=== PATIENT | female | born 1955 | race Caucasian/White ===

== ENCOUNTER 2025-05-24 07:01 | Emergency (ER) | payer OTHER, SELFPAY ==
[2025-05-24 07:04] VITALS: BP 117/71
--- NOTE | 2025-05-24 07:45 | ED.GENMED ---
History of Present Illness
<Raheem Arias MD, Resident - Last Filed: 05/24/25 16:19>
General
Chief Complaint: Back Pain
Time Seen by Provider: 05/24/25 07:14
History of Present Illness
History of Present Illness:
Patient is a 69-year-old female who presents to the emergency department with complaints of low back pain for the past 2 weeks that have begun to radiate down her right leg and is associated with weakness. Patient was in her normal state of health
2 weeks ago when she started to have low back pain around the area of the L4-L5 region. The back pain continued to get worse which prompted her to contact her primary care provider who gave her steroids and Flexeril. Unfortunately, the pain
continued and she was unable to get comfortable which led her primary care provider to give her tramadol which was also unsuccessful in managing her pain. The pain worked its way down to her right foot and the patient struggles to sleep. She
describes the pain as sharp at a 6 out of 10 to 8 out of 10 pain at worst. Now she has numbness in the toes of her right foot. She is unsteady and her helped her walk into the emergency department. She denies any trauma associated with
the back pain she denies any fever or history of fall. She does not use any IV drugs. She denies any change in her bowel or bladder habits.
Past History
<Raheem Arias MD, Resident - Last Filed: 05/24/25 16:19>
Past History
ED Past Medical History: GERD
ED Past Surgical History: Other (hysterectomy)
Social History
Personal:
Living: with family
Review of Systems
<Raheem Arias MD, Resident - Last Filed: 05/24/25 16:19>
Review of Systems
Constitutional: Reports no symptoms
EENT: Reports no symptoms
Respiratory: Reports no symptoms
Cardiac: Reports no symptoms
ABD/GI: Reports no symptoms
: Reports no symptoms
Musculoskeletal: Reports back pain
Skin: Reports no symptoms
Neurological: Reports weakness (Right lower limb weakness and difficulty with ambulation)
Endocrine: Reports no symptoms
Hematologic/Lymphatic: Reports no symptoms
Psychiatric: Reports no symptoms
Phy Exam
<Raheem Arias MD, Resident - Last Filed: 05/24/25 16:19>
General Physical Exam
General Presentation: well appearing and moderate distress
General age: appears stated age
General Skin: warm
General Habitus: normal
General Mental: alert
General Hydration: appears well hydrated
Cardiovascular Exam
Cardiovascular Exam: regular rate/rhythm, no edema, no gallop, no JVD and no murmur
Neurological Exam
Neurological Exam: alert, oriented x3 and motor weakness (Right lower limb weakness, decreased L4 reflex, weakness in dorisflexion)
Musculoskeletal Exam
Musculoskeletal Exam: full ROM
Skin Exam
Skin Exam: normal color, warm/dry, no rash and no petechia
Psychiatric Exam
Psychiatric Exam: normal mood/affect
Course
<Raheem Arias MD, Resident - Last Filed: 05/24/25 16:19>
Orders/Labs/Results
Orders:
Orders
05/24/25 07:49
MR Lumbar Without Contrast Routine
Comment:
Reason For Exam: Decreased L4 reflex and Wkness in Dorsiflexion/L5
Recent pill cam endoscopy?: No
05/24/25 09:41
Ketorolac [Toradol] 15 mg IM NOW ONE
05/24/25 10:40
Oxycodone/Acetaminophen [Percocet 5/325] 1 tablet PO NOW ONE
Vital Signs
Initial and Last Documented VS:
Initial Vital Signs
Temp Pulse Resp Pulse Ox
98.2 F 87 18 100
05/24/25 07:02 05/24/25 07:02 05/24/25 07:02 05/24/25 07:02
Last Documented Vital Signs
Temp Pulse Resp BP Pulse Ox
98.2 F 59 16 149/78 98
05/24/25 07:02 05/24/25 15:57 05/24/25 16:00 05/24/25 15:57 05/24/25 15:57
<Jaspreet Mcnair, DO - Last Filed: 05/24/25 17:45>
Orders/Labs/Results
Orders:
Orders
05/24/25 07:49
MR Lumbar Without Contrast Routine
Comment:
Reason For Exam: Decreased L4 reflex and Wkness in Dorsiflexion/L5
Recent pill cam endoscopy?: No
05/24/25 09:41
Ketorolac [Toradol] 15 mg IM NOW ONE
05/24/25 10:40
Oxycodone/Acetaminophen [Percocet 5/325] 1 tablet PO NOW ONE
Vital Signs
Initial and Last Documented VS:
Initial Vital Signs
Temp Pulse Resp Pulse Ox
98.2 F 87 18 100
05/24/25 07:02 05/24/25 07:02 05/24/25 07:02 05/24/25 07:02
Last Documented Vital Signs
Temp Pulse Resp BP Pulse Ox
98.2 F 59 16 149/78 98
05/24/25 07:02 05/24/25 15:57 05/24/25 16:00 05/24/25 15:57 05/24/25 15:57
<Jaspreet Mcnair DO - Last Filed: 05/24/25 17:45>
MDM/Problems Addressed
Differential Diagnosis Includes:
L5 disc herniation, sciatica. Cauda equina
Chronic conditions affecting care: Previous abdomnial surgery (hysterectomy)
<Raheem Arias MD, Resident - Last Filed: 05/24/25 16:19>
*Pulse Oximetry
SaO2: 100
Patient hypoxic: no
*Critical Care Note
Total Time (30-74mins, 75-104mins- exclusive of procedures): Not Applicable
<Raheem Arias MD, Resident - Last Filed: 05/24/25 16:19>
Update Note
Update Note:
Problem List:
Low back pain
Right lower limb weakness
Difficulty ambulating
Plan:
MRI lumbar spine without contrast ordered
Differential Diagnoses:
Lumbar intervertebral disc herniation with radiculopathy
Lumbar spondylolisthesis
Degenerative lumbar spondylosis
Facet arthropathy
Sciatic nerve radiculopathy
Cauda equina syndrome
Radiology:
- MRI of the lumbar spine without contrast conducted on 05/24/2025:
EKG: Not applicable
Labs: Not applicable
Updates:
ED Attending Note
<Raheem Arias MD, Resident - Last Filed: 05/24/25 16:19>
-
Portions of this chart may have been created with voice recognition software.� Occasional wrong word or��sound alike� substitutions may have occurred due to the inherent limitations of voice recognition software.
<Jaspreet Mcnair, DO - Last Filed: 05/24/25 17:45>
ED Attending Note
Patient seen and examined by attending physician: Yes
I performed a history and physical exam of patient and discussed management with resident, I reviewed resident's note and agree with documented findings and plan of care.: Yes
ED Attending Note:
I have reviewed and agree with history and treatment plan by the greg Mathias MD. My exam revealed 69-year-old female with full muscle strength bilateral extremities, but description revealing of likely L5 distribution of pain. Patient denies
incontinence or saddle anesthesia. Do not suspect cauda equina. MRI was initially ordered for patient, however unable to obtain, patient comfortable going home. Will give follow-up information with Dr. Jarrett, pain management. Treat with
Lyrica.
Discharge Plan
Departure
Patient Disposition: Home (Routine Discharge)
Date of Disposition: 05/24/25
Time of Disposition: 17:43
Patient with high blood pressure during this ER visit?: Yes
Condition: Good
Discharge Problem:
Sciatica
Instructions: Low Back Pain (DC), Sciatica (DC), Radiculopathy (DC)
Prescriptions:
New
pregabalin [Lyrica] 25 mg capsule
25 mg PO HS Qty: 30 0RF
Rx Instructions:
may increase to 50 mg a day if tolerated
No Action
flaxseed oil [Peshtigo-3 Flaxseed Oil] 1,000 MG capsule
1,200 mg PO Daily
ranitidine HCl [Zantac] 150 MG tablet
150 mg PO Daily
estradiol [Gynodiol] 0.5 MG tablet
0.5 mg PO Daily
diazepam 5 MG tablet
5 mg PO PRN PRN (Reason: anxiety)
calcium carbonate-vitamin D3 [Calcium 500 + D] 1 EACH tablet
1 ea PO DAILY
dwjwhfgt-nxpus-xhj 2-C-D3-enrique [Llwtzqns-Ymopdl-GTJ with vit D] 1 EACH tablet
1 ea PO DAILY
Referrals:
Yonny aJrrett MD [Active, Anesthesiology] - Call in 1-3 days for appt
Dieudonne Beckman MD [Family Provider, Family Practice]
Interventions
Interventions:
*Risk Screen - Suicide Last Done: 05/24/25 09:49
*General Assessment Last Done: 05/24/25 09:49
*Neglect/Abuse Screening Last Done: 05/24/25 09:49
*ED- Fall Risk Assessment Last Done: 05/24/25 09:49
*ED COVID-19 Vaccine History Last Done: 05/24/25 09:49
ED-Musculoskeletal Assessment Last Done: 05/24/25 09:49
Discharge Date and Time
Print Language: MAURITIAN
[2025-05-24] MEDS: TORADOL 15 MG IM (09:44)
[2025-05-24 09:45] VITALS: BP 152/74
[2025-05-24 09:48] VITALS: BMI 22.9
[2025-05-24] MEDS: PERCOCET 5/325 1 TABLET PO (10:43)
[2025-05-24 13:36] VITALS: BP 143/63
[2025-05-24 15:57] VITALS: BP 149/78
[2025-05-24 17:53] VITALS: BP 141/77
[2025-05-24] MEDS: LYRICA 25 MG PO (18:12)
== END 2025-05-24 18:26 | disposition home or self-care (01) ==
LOC: EMR 07:01
PROVIDERS: EMERGENCY PHYSICIAN Emergency Medicine; FAMILY PHYSICIAN Family Medicine
DX: M54.40 Lumbago with sciatica, unspecified side (principal); Z90.710 Acquired absence of both cervix and uterus; K21.9 Gastro-esophageal reflux disease without esophagitis
CPT/HCPCS: 99282; 96372